=== PATIENT | female | born 1980 ===

== ENCOUNTER 2018-02-20 17:11 | Emergency (ER) | payer SELFPAY ==
[2018-02-20 17:16] VITALS: BP 99/62; PULSE 65; RESP 16; TEMP 99.2; O2SAT 100
--- NOTE | 2018-02-20 17:30 | C.PDOC ---
History Of Present Illness 37 year old female presents to the emergency department with complaints of an intermittent headache persisting for two weeks which has gradually worsened over the past few days. She reports constant pressure around her head with fullness and occasional ringing in her left ear. She admits to taking Advil with transient relief, otherwise she denies vision changes, dizziness, numbness , weakness, fever, or neck pain. Time Seen by Provider: 02/20/18 17:20 Chief Complaint (Nursing): Headache History Per: Patient History/Exam Limitations: no limitations Onset/Duration Of Symptoms: Other (two weeks) Current Symptoms Are (Timing): Worse Quality: Aching, Pressure Preceeding Symptoms: denies: Visual Disturbances Associated Symptoms: denies: Blurred Vision Past Medical History Reviewed: Historical Data, Nursing Documentation, Vital Signs Vital Signs: Last Vital Signs Temp 99.2 F 02/20/18 17:14 Pulse 65 02/20/18 17:14 Resp 16 02/20/18 17:14 BP 99/62 L 02/20/18 17:14 Pulse Ox 100 02/20/18 17:46 - Medical History PMH: No Chronic Diseases Surgical History: No Surg Hx Family History: States: No Known Family Hx - Social History Hx Alcohol Use: No Hx Substance Use: No Review Of Systems Constitutional: Negative for: Fever Eyes: Negative for: Vision Change ENT: Positive for: Other (ringing in ears) Musculoskeletal: Negative for: Neck Pain Neurological: Positive for: Headache, Other (pressure around head). Negative for: Numbness, Dizziness Physical Exam - Physical Exam Appears: Non-toxic Skin: Normal Color, Warm, Dry Head: Atraumatic, Normacephalic, No Tenderness (mastoid tenderness) Eye(s): bilateral: Normal Inspection, PERRL, EOMI Ear(s): Bilateral: TM Dull Throat: Normal, No Erythema, No Exudate, No Drooling Neck: Normal, Supple Chest: Symmetrical, No Tenderness Cardiovascular: Rhythm Regular, No Murmur Respiratory: Normal Breath Sounds, No Accessory Muscle Use, No Rales, No Rhonchi , No Stridor, No Wheezing Gastrointestinal/Abdominal: Normal Exam, Soft, No Tenderness, No Guarding, No Rebound Extremity: Bilateral: Atraumatic, Normal Color And Temperature, Normal ROM Neurological/Psych: Oriented x3, Normal Speech, Normal Cognition, Normal Cranial Nerves, No Cerebellar Signs, Normal Motor, Normal Sensation, Other (no focal deficits) ED Course And Treatment O2 Sat by Pulse Oximetry: 100 (RA) Pulse Ox Interpretation: Normal Medical Decision Making Medical Decision Making: On reassessment, patient is resting comfortably, is tolerating PO, and pain has improved. Patient has no neurologic deficit, photophobia, rash, fever, or nuchal rigidity. Patient was instructed to follow up with physician/clinic in 1- 2 days Disposition Counseled Patient/Family Regarding: Diagnosis, Need For Followup, Rx Given - Disposition Referrals: [facility] [Outside] [facility] [Outside] Sher Metz MD [Staff Provider] - Disposition: HOME/ ROUTINE Disposition Time: 18:00 Condition: GOOD Additional Instructions: [place] Sudafed segn sea necesario para cualquier congestin o cefalea sinusal [place] antibiticos dos veces al da Bertha un seguimiento con valentin mdico o clnica Bertha un seguimiento con ENT si los sntomas persisten Prescriptions: Amoxicillin/Clavulanate [Augmentin 875 MG-125 MG] 1 tab PO BID #14 tab Pseudoephedrine HCl [Sudafed 12 Hour] 120 mg PO Q12 #24 tablet.er Instructions: Sinusitis, Adult (DC) Print Language: GERMAN - POA Present On Arrival: None - Clinical Impression Clinical Impression: Sinusitis - PA / ETCHER ENAMELING / Resident Statement MD/DO has reviewed & agrees with the documentation as recorded. - Scribe Statement The provider has reviewed the documentation as recorded by the Scribe (Ben Mcduffie) All medical record entries made by the Scribe were at my direction and personally dictated by me. I have reviewed the chart and agree that the record accurately reflects my personal performance of the history, physical exam, medical decision making, and the department course for this patient. I have also personally directed, reviewed, and agree with the discharge instructions and disposition.
== END 2018-02-20 18:00 | disposition home or self-care (01) ==
LOC: C.ER 17:11
DX: J32.9 Chronic sinusitis, unspecified (principal)

== ENCOUNTER 2018-09-26 09:45 | Emergency (ER) | payer OTHER ==
[2018-09-26 10:00] VITALS: BP 113/80; PULSE 84; RESP 18; TEMP 98.3; O2SAT 98
--- NOTE | 2018-09-26 10:14 | C.PDOC ---
History Of Present Illness 38 year old female presents to the emergency department with complaints of itchy blisters to her right forearm for the last two weeks. Patient states that she feels as if the blisters are spreading throughout her body. She reports taking Motrin for her symptoms with no relief. Patient denies any bug bites, fever, smoking, alcohol/drug use. Patient denies any past medical history of family history. Patient does not have any known medicinal allergies. Patient's PMD is Dr. Hassan. 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) Onset/Duration Of Symptoms: Other (2 weeks) Current Symptoms Are (Timing): Still Present Location Of Injury: Right: Forearm Quality Of Symptoms: Itching Past Medical History Reviewed: Historical Data, Nursing Documentation, Vital Signs Vital Signs: Last Vital Signs Temp 98.3 F 09/26/18 09:57 Pulse 84 09/26/18 09:57 Resp 18 09/26/18 09:57 BP 113/80 09/26/18 09:57 Pulse Ox 98 09/26/18 09:57 - Medical History PMH: No Chronic Diseases Surgical History: No Surg Hx Family History: States: No Known Family Hx - Social History Hx Tobacco Use: No Hx Alcohol Use: No Hx Substance Use: No Review Of Systems Except As Marked, All Systems Reviewed And Found Negative. Constitutional: Negative for: Fever, Chills Respiratory: Negative for: Cough, Shortness of Breath Gastrointestinal: Negative for: Nausea, Vomiting, Diarrhea Skin: Positive for: Rash (itching, blisters to right forearm) Physical Exam - Physical Exam Appears: Non-toxic, No Acute Distress Skin: Warm, Dry, Other (multiple areas warm areas of erythema with scratch mitchell to the right forearm. No streaking. ) Head: Atraumatic, Normacephalic Eye(s): bilateral: Normal Inspection Nose: Normal Tongue: Normal Appearing, No Swelling Lips: Normal Appearing, No Swelling Neck: Normal, Supple Chest: Symmetrical, No Tenderness Cardiovascular: Rhythm Regular, No Murmur Respiratory: No Rales, No Rhonchi, No Wheezing Extremity: Normal ROM Neurological/Psych: Oriented x3, Normal Speech, Normal Cognition ED Course And Treatment O2 Sat by Pulse Oximetry: 98 (RA) Pulse Ox Interpretation: Normal Medical Decision Making Medical Decision Making: Plan: Bactrim 1tab PO Keflex 500mg PO Disposition - Disposition Referrals: [facility] [Outside] Disposition Time: 10:17 Additional Instructions: Ms. Carl, thank you for letting us take care of you today. Return to the ER if your symptoms worsen, or if any problems. Take the medication listed below as prescribed. Call the phone number listed below to make an appointment at our [facility] so you can be re-evaluated. Prescriptions: Cephalexin [cephalexin] 1 tab PO QID #40 cap DiphenhydrAMINE [Benadryl] 1 tab PO Q6 PRN #12 cap PRN Reason: Itching / Pruritus Sulfamethoxazole/Trimethoprim [Bactrim DS 800 mg-160 mg] 2 tab PO BID #20 tab Instructions: Cellulitis (Skin Infection), Adult (DC) Forms: Compute (Estonian) Print Language: CZECH - POA Present On Arrival: None - Clinical Impression Clinical Impression: Cellulitis of arm, right - Scribe Statement The provider has reviewed the documentation as recorded by the Scribe (Ben Mcduffie) Provider Attestation: All medical record entries made by the Scribe were at my direction and personally dictated by me. I have reviewed the chart and agree that the record accurately reflects my personal performance of the history, physical exam, medical decision making, and the department course for this patient. I have also personally directed, reviewed, and agree with the discharge instructions and disposition.
[2018-09-26] MEDS ORDERED: Tmp-Smz 800 mg-160 mg DS Tab PO STA (10:15)
--- NOTE | 2018-09-26 10:16 | C.PDOC ---
Time Seen by Provider: 09/26/18 10:00 Chief Complaint (Nursing): Abnormal Skin Integrity Past Medical History Vital Signs: Last Vital Signs Temp 98.3 F 09/26/18 09:57 Pulse 84 09/26/18 09:57 Resp 18 09/26/18 09:57 BP 113/80 09/26/18 09:57 Pulse Ox 98 09/26/18 09:57 - Social History Hx Alcohol Use: No Hx Substance Use: No ED Course And Treatment O2 Sat by Pulse Oximetry: 98 Disposition - Disposition
[2018-09-26] MEDS ORDERED: Tmp-Smz 800 mg-160 mg DS Tab ONE (10:23)
== END 2018-09-26 10:27 | disposition home or self-care (01) ==
LOC: C.ER 09:45
DX: L03.113 Cellulitis of right upper limb (principal)